=== PATIENT | male | born 1955 | race Caucasian/White ===

== ENCOUNTER → 2019-02-24 | Outpatient (CLI) | payer MEDICARE, OTHER | END | disposition home or self-care (01) | LOC: PCVCCLINIC 14:21 | PROVIDERS: ATTEND Internal Medicine Cardiovascular Disease | DX: I25.810 Atherosclerosis of coronary artery bypass graft(s) without angina pectoris (principal); E78.00 Pure hypercholesterolemia, unspecified; I10 Essential (primary) hypertension; J44.9 Chronic obstructive pulmonary disease, unspecified; Z79.82 Long term (current) use of aspirin | CPT/HCPCS: 36415; 80061; 93005; G0463 ==

== ENCOUNTER → 2019-03-16 | Outpatient (CLI) | payer MEDICARE, OTHER ==
--- NOTE | 2019-03-16 14:44 | PCVCIMAG ---
APPROVED REPORT Study performed: 03/16/2019 13:27:18 Exam: Stress Echocardiogram Indication: CAD s/p CABG Patient Location: Echo lab Stress Nurse: Pooja Fiore RN Room #: 2 Status: routine Ht: 5 ft 9 in HR: 71 bpm BP: 130/72 mmHg Rhythm: NSR Medical History Medical History: CAD s/p CABG, HTN, Hyperlipidemia, COPD Cardiac Risk Factors: HTN, Hyperlipidemia Previous Cardiac Procedures: CABG Pretest Chest Pain Characteristics: No chest pain Exercise History: Physically active Procedure The patient underwent an Exercise Stress Test using the Tarun Protocol. Blood pressure, heart rate, and EKG were monitored. An Echocardiogram was performed by automotive service technician in four stages in quad fashion. At peak stress, four selected images were obtained and placed side by side with resting images for comparison. Stress Test Details Stress Test: Exercise stress testing was performed using a Tarun protocol. HR Resting HR: 71 bpmMax Heart Rate (APMHR): 155 bpm Max HR Achieved: 162 bpmTarget HR (85% APMHR): 131 bpm % of APMHR: 104 Recovery HR: 114 bpm HR response to stress: Normal HR response to stress BP Resting BP: 130/72 mmHg Max BP: 172/80 mmHg Recovery BP: 140/78 mmHg BP response to stress: Normal blood pressure response to stress. ECG Resting ECG: Sinus Rhythm, occasional PVC Stress ECG: Sinus Rhythm,PVCs,PACs ST Change: Downsloping ST depression Arrhythmia: Frequent PVCs,couplet, 3 beat runs: PACs Recovery ECG: Sinus Rhythm Recovery ST Change: Eqivocally ischemic Recovery Arrhythmia: PVCs,PACs Clinical Reason for Termination: Maximal effort Stress Symptoms: none Exercise duration: 12 min 46 sec Highest Stage Achieved: Stage 5: 5.0 mph at 18% grade. Exercise capacity: 16.3 METs Overall Exercise Capacity for Age: Excellent Scale: Active Angina Score: None No complications. Stress ECG Conclusion The patient exercised according to the TARUN protocol for12:46 mins; achieving a work level of 16.3 METS. The resting heart rate of 71 bpm moon to a maximum heart rate of 162 bpm. This value represent 104% of the maximal, age-predicted heart rate. The resting blood pressure of 130/72mmHg, moon to a maximum blood pressure of 172/80 mmHg. The exercise test was stopped due to fatigue,dyspnea . Pre-Stress Echo The resting Echocardiogram showed normal left ventricular contractility with an estimated Ejection Fraction of about 55-60%. The resting Echocardiogram demonstrated wall motion abnormality in the septum consistent with CABG . Normal wall motion in all segments on baseline images. Post-Stress Echo The stress Echocardiogram showed normal left ventricular contractility with an estimated Ejection Fraction of about 65-70%. The stress Echocardiogram demonstrated wall motion abnormality in the septum consistent with CABG . Conclusion Clinical Response: Non-ischemic Exercise Capacity: Superior Stress ECG Response: Equivocal Stress Echo Images: Non-ischemic No clinical or echocardiographic evidence for ischemia. No echocardiographic evidence for exercise induced ischemia. Normal stress echocardiogram with maximal exercise stress. Other Information Study Quality: Excellent <Conclusion> No clinical or echocardiographic evidence for ischemia. No echocardiographic evidence for exercise induced ischemia. Normal stress echocardiogram with maximal exercise stress.
== END | disposition home or self-care (01) ==
LOC: PCVCIMAG 15:13
PROVIDERS: ATTEND Internal Medicine Cardiovascular Disease
DX: I25.810 Atherosclerosis of coronary artery bypass graft(s) without angina pectoris (principal); E78.00 Pure hypercholesterolemia, unspecified; I10 Essential (primary) hypertension; Z95.1 Presence of aortocoronary bypass graft
CPT/HCPCS: 93325; 93351